=== PATIENT | female | born 1990 | race Two or more races ===

== ENCOUNTER → 2024-02-02 | Outpatient (CLI) | payer MEDICAID, SELFPAY ==
--- NOTE | 2024-02-02 10:00 | XR_ITS ---
Examination: CT abdomen and pelvis without contrast. Coronal 3-D reconstructions. Sagittal 2-D reconstructions. Date and time of exam:February 02, 2024 1035 hours Comparison September 28, 2015 INDICATIONS: Abnormal spleen on outside ultrasound examination this week CTDI: vol (mGy): 27.3 DLP: (mGycm): 1580 Technique: Axial images of the abdomen have been obtained, 3 mm slice thickness Intravenous contrast material has not been administered. Low dose protocols were performed. One or more of the following dose reduction techniques were used; automated exposure control, adjustment of the mA and/or KV according to patient size, use of iterative reconstruction technique. Findings: Pneumobilia Liver is irregular in contour with fatty infiltration Hepatomegaly 21 cm Splenomegaly, AP dimension 16 cm Portosystemic collateral vessels medial to the spleen No pancreatic mass No renal or ureteral calculi Absent gallbladder Aorta normal size No ascites No bowel obstruction Normal appendix 8mm fat-containing umbilical hernia Anteverted uterus No adnexal mass Urinary bladder intact Mild to moderate osteopenia IMPRESSION: Cirrhosis Prominent splenomegaly Portosystemic collateral vessels medial to the spleen Normal appendix No bowel obstruction
[2024-02-02 10:18] LABS: HCG Qualitative,Urine Negative
== END | disposition home or self-care (01) ==
PROVIDERS: Referring Provider Physician Assistant; Visit Provider Physician Assistant
DX: K74.60 Unspecified cirrhosis of liver (principal); R16.1 Splenomegaly, not elsewhere classified
CPT/HCPCS: 74176; 81025

== ENCOUNTER → 2024-05-07 | Outpatient (CLI) | payer MEDICAID, SELFPAY ==
[2024-05-07 11:14] LABS: HCG Qualitative,Urine Negative
== END | disposition home or self-care (01) ==
LOC: CCTX 10:24
PROVIDERS: PCP Physician Assistant; Referring Provider Internal Medicine Gastroenterology; Visit Provider Internal Medicine Gastroenterology
DX: Z53.8 Procedure and treatment not carried out for other reasons (principal); Z32.00 Encounter for pregnancy test, result unknown
CPT/HCPCS: 81025

== ENCOUNTER → 2024-05-13 | Outpatient (CLI) | payer MEDICAID, SELFPAY ==
--- NOTE | 2024-05-13 16:45 | XR_ITS ---
MRI abdomen, without contrast. MRCP Date and time of exam: May 14, 2023 1741 hours INDICATIONS: Diagnosis of the specified diseases of the biliary tract, cirrhosis, prominent splenomegaly on CT abdomen and pelvis February 02, 2024 Technique: Multiple axial and coronal images of the abdomen have been obtained with the Siemens 1.5T MRI scanner. Images obtained included T1 weighted transverse images, T2-weighted transverse images, T2-weighted transverse images fat-suppressed, T2 weighted haste fat suppressed transverse images, T1 weighted images, in and out of phase images, T2-weighted coronal images, breath hold, T2 weighted haze coronal images as well as T2 weighted coronal thick slab images, MRCP. Findings: Hepatomegaly 20 cm liver is irregular in contour Absent gallbladder Abnormal extrahepatic biliary tract dilatation, abrupt termination of the common hepatic duct, coronal image 12 Multiple tiny 1 to 2 mm filling defects in the common hepatic duct, coronal image 12 Splenomegaly 15 cm No pancreatic mass No hydronephrosis No ascites. IMPRESSION: Cirrhosis Hepatosplenomegaly Abnormal extrahepatic biliary tract dilatation, abrupt termination of the common hepatic duct, multiple tiny stones in the common hepatic duct Recommend ERCP follow-up to exclude impacted stones versus malignant stricture in the distal common bile duct
== END | disposition home or self-care (01) ==
PROVIDERS: PCP Physician Assistant; Referring Provider Internal Medicine Gastroenterology; Visit Provider Internal Medicine Gastroenterology
DX: K74.60 Unspecified cirrhosis of liver (principal); R16.2 Hepatomegaly with splenomegaly, not elsewhere classified; K83.9 Disease of biliary tract, unspecified
CPT/HCPCS: S8037; 74181

== ENCOUNTER 2024-06-05 07:35 | Day surgery (SDC) | payer MEDICAID, SELFPAY ==
[2024-06-04 14:22] VITALS: BMI 54.3
[2024-06-04 16:52] LABS: HCG Qualitative,Urine Negative
[2024-06-05] VITALS (8 sets, daily range): BP systolic 142–162; BP diastolic 84–102; PULSE 74–88; RESP 12–23; TEMP 36.2–36.6; O2SAT 95–100; BMI 54.6
[2024-06-05] MEDS: RINGERS LACTATED 1000 ML 1,000 ML 125 ML IV (09:51)
--- NOTE | 2024-06-05 10:14 | SUR.PHASEII ---
1014: Pt. AAOx4, vitals stable, breathing unlabored, no complaint of pain or nasuea, no dressing in place, no active bleed noted, report received from MD Babin and Jolie DU.
[2024-06-05] MEDS: ONDANSETRON INJ 2 MG/ML INJ 2 ML 4 MG IV (11:09)
--- NOTE | 2024-06-05 11:25 | SUR.PHASEII ---
1125: Pt. AAOx4, vitals stable, breathing unlabored, no complaint of pain or nausea, no dressing in place, no active bleed noted, pt. tolerated sips of water well, pt. ambulated to wheelchair with steady gait and no assist, no complications. Gave discharge instructions to the pt. and her ride, both verbalized understanding and had no further questions. Pt. left with all personal belongings.
--- NOTE | 2024-06-05 11:40 | SUR.PHASEII ---
1019: Pt. AAOx4, vitals stable, breathing unlabored, no complaint of pain or nasuea, no dressing in place, no active bleed noted, report received from MD Babin and Jolie DU.
== END 2024-06-05 11:25 | disposition home or self-care (01) ==
PROVIDERS: Anesthesiology; PCP Physician Assistant; Referring Provider Internal Medicine Gastroenterology; Visit Provider Internal Medicine Gastroenterology
PROC: (CPT 43239; principal; 2024-06-05 09:00)
DX: I85.01 Esophageal varices with bleeding (principal); K74.60 Unspecified cirrhosis of liver; E66.9 Obesity, unspecified; K44.9 Diaphragmatic hernia without obstruction or gangrene; K29.71 Gastritis, unspecified, with bleeding; K29.51 Unspecified chronic gastritis with bleeding
CPT/HCPCS: 43244; 43239; 81025; A4217; A4649; J2405; J7120